=== PATIENT | male | born 1995 | race African-American/Black ===

== ENCOUNTER 2020-07-27 14:51 | Emergency (ER) | payer SELFPAY ==
[~2020-07-27] VITALS: Ht 167.6 cm; Wt 70.0 kg
[2020-07-27] MEDS ORDERED: ONDANSETRON HCL 4MG/2ML INJ IV STA (15:02)
[2020-07-27] MEDS ORDERED: KETOROLAC 30MG/ML VIAL IV STA (15:02)
[2020-07-27] MEDS ORDERED: TETANUS, DIPHTHERIA, PERTUSSIS VAC/PF 0.5ML (>7YR OLD) IM ONE (15:15)
[2020-07-27] MEDS ORDERED: SODIUM CHLORIDE 0.9% 1,000 ML IV ONE (15:15)
[2020-07-27] MEDS ORDERED: BACITRACIN ZINC OINT UDPKT TOP ONE (15:15)
[2020-07-27] MEDS ORDERED: LIDOCAINE 1%/EPI 1:100,000 10 ML VIAL IJ ONE (15:15)
[2020-07-27 15:20] LABS: BASOPHILS % 0.5 % (0.0-2.0); HEMATOCRIT. 48.2 % (42.0-52.0); HEMOGLOBIN. 15.9 g/dL (14.0-18.0); LYMPHOCYTES % 47.8 % (20.0-50.0); MEAN CORPUSCULAR HEMOGLOBIN 29.2 pg (28.0-32.0); MEAN CORPUSCULAR VOLUME 88.3 fL (80.0-94.0); MEAN PLATELET VOLUME 10.3 fl (7.4-10.4); MONOCYTES % 6.7 % (2.0-8.0); PLATELET 165 x1000/uL (130-400); RED BLOOD CELL COUNT 5.46 mill/uL (4.7-6.1); RED CELL DISTRIBUTION WIDTH 12.8 % (11.6-14.6)
[2020-07-27 15:25] LABS: CHLORIDE 104 mEq/L (98-107)
[2020-07-27 15:29] LABS: PARTIAL THROMBOPLASTIN TIME 26.9 sec (23.4-31.0)
[2020-07-27 16:26] VITALS: BP 134/76
== END 2020-07-27 17:27 | disposition home or self-care (01) ==
LOC: ER 14:51
DX: S81.831A Puncture wound without foreign body, right lower leg, initial encounter (principal); S91.331A Puncture wound without foreign body, right foot, initial encounter; X93.XXXA Assault by handgun discharge, initial encounter; Y93.89 Activity, other specified; Y92.89 Other specified places as the place of occurrence of the external cause
CPT/HCPCS: 12004; 36415; 73590; 73610; 73630; 80053; 85025; 85610; 85730; 86850; 86900; 86901; 90471; 90715; 93005; 96361; 96374; 96375; 99285; J1885; J2405; J3490; J7030; Z7610